=== PATIENT | female | born 1995 | race Caucasian/White ===

== ENCOUNTER 2023-08-28 13:26 | Outpatient (CLI) | payer MEDICAID, SELFPAY | END 2023-08-28 13:27 | disposition home or self-care (01) | PROVIDERS: PCP Emergency Medicine; Visit Provider Emergency Medicine | DX: Z00.00 Encounter for general adult medical examination without abnormal findings (principal); R73.01 Impaired fasting glucose; D64.9 Anemia, unspecified; R20.2 Paresthesia of skin | CPT/HCPCS: 80048; 82607; 82728; 84443 ==